=== PATIENT | male | born 1935 | race Caucasian/White ===

== ENCOUNTER → 2016-06-04 | Day surgery (SDC) | payer OTHER ==
[2016-05-26 15:49] VITALS: Ht 162.6 cm; Wt 77.3 kg
[~2016-06-04] VITALS: Ht 162.6 cm; Wt 77.3 kg
[~2016-06-04] MED LIST: 500ML BSS 0.3ML EPI 1:1000PF IRRIG ONE; ACETAMINOPHEN 325 MG TAB PO PRN; ALBUAER2 INH; AMVISC PLUS 0.8ML SYRINGE INT OCU ONE; ASCO-63 PO; ASPCH81X PO; ASTN; ATROPINE SULFATE 0.1 MG/ML 5ML SYR IV PRN; AcetaZOLAMIDE 250 MG TAB PO SCH; BETAXOLOL HCL 0.25% OP SUSP PER DROP CHARGE OPR SCH; BRIMONIDINE TART 0.2% OP SOLN PER DROP CHARGE ONE; BSS FLUSH ONE; CHOL1000 PO; CITA10TA4 PO; ENDOCOAT 0.85ML SYRINGE INT OCU ONE; EpHEDrine SULFATE INJ 50 MG/ML AMP IV PRN; EpINEphrine INJ 1MG/ML AMP 1 MG/ML AMP ONE; FENTANYL CITRATE INJ 50 MCG/1 ML 2 ML VIAL IV PRN; FLUMAZENIL 0.1 MG/1 ML 10 ML VIAL IV PRN; FRS/40 PO; HYDROmorphone INJ 2 MG/ML SYR/VIAL IV PRN; LABETALOL HCL IV 5 MG/ML 20ML IV PRN; LACTATED RINGER'S 1000ML 500 ML IV SCH; LEVO50TA6 PO; LIDOCAINE 4% OP SOLN DROP CHARGE ONE; LIDOCAINE 4% OP SOLN DROP CHARGE OPR SCH; LIDOCAINE HCL 1% MPF 2 ML VIAL ONE; MEPERIDINE HCL 25 MG/ML CARP IV PRN; METO25TA3 PO; MIDAZOLAM HCL 1 MG/ML 2ML VIAL ONE; MIX: 4ML BSS 1ML EPI 1:1000 PF INSTIL ONE; MOXIFLOXACIN OPH SOLN PER DROP CHARGE ONE; NALOXONE HCL 0.4 MG/1 ML VIAL/CARP IV PRN; OCUCOAT 1 ML SOLN IO ONE; ONDANSETRON INJ 2 MG/ML 2 ML VIAL IV PRN; PANT40TA PO; PHENYLEPHRINE 100MCG/ML 5ML SYR IV PRN; POTASSIUM PO; POVIDONE-IODINE OP SOLN 30 ML BTL ONE; PRAV20TA PO; PRED1SUS3 OPR; PROPARACAINE 0.5% OP SOLN PER DROP CHARGE OPR SCH; TAMS0.4C38 PO; TOBRAMYCIN/DEXAMETHASONE OPH OINT PER APPLN CHARGE ONE; WARF1TAB PO; [UNRECOGNIZED DRUG - CODE] PO
--- NOTE | 2016-06-04 07:55 | History & Physical Bridge - SC ---
H&P Re-Evaluation Bridge Note: I have examined the patient, reviewed the History & Physical and in the interval since the performance of the History & Physical I have noted the following changes of clinical significance: No changes noted
[2016-06-04] MEDS: PHENYLEPHRINE HCL 2.5% OP SOLN PER DROP CHARGE OPR SCH ×2 (08:42→08:47)
[2016-06-04] MEDS: TROPICAMIDE 1% OP SOLN PER DROP CHARGE OPR SCH ×2 (08:43→08:48)
[2016-06-04] MEDS: CYCLOPENTOLATE HCL 1% OP SOLN PER DROP CHARGE OPR SCH ×2 (08:44→08:49)
[2016-06-04] MEDS: MOXIFLOXACIN OPH SOLN PER DROP CHARGE OPR SCH ×2 (08:45→08:53)
--- NOTE | 2016-06-04 09:17 | Discharge Instructions-SurgCtr ---
Discharge Instructions Date of Service Jun 04, 2016. Visit Reason for Visit: Cataract Right Eye Discharge Discharge Diagnosis / Problem: lens implant right eye Discharge Goals Goal(s): Improve function Activity Recommendations Activity Limitations: resume your previous activity Lifting Limitations: no more than 10 pounds Exercise/Sports Limitations: gradually increase as tolerated May Resume Sexual Activity: when tolerated Shower/Bathe: tomorrow Driving or Machine Use: resume 1 day after discharge Anesthesia . Post Anesthesia Instructions: If you have had General Anesthesia or IV Sedation: * Do not drive today. * Resume driving when surgeon permits. * Do not make important decisions or sign legal documents today. * Call surgeon for: 1. Temperature elevations greater than 101 degrees F. 2. Uncontrollable pain. 3. Excessive bleeding. 4. Persistent nausea and vomiting. 5. Medication intolerance (nausea, vomiting or rash). * For nausea and vomiting use only clear liquids such as: tea, soda, bouillon until nausea subsides, then gradually increase diet as tolerated. * If you have any concerns or questions, call your surgeon's office. If physician is unavailable and it is an emergency, call 911 or go to the nearest emergency room. . Instructions / Follow-Up Instructions / Follow-Up ACTIVITY RECOMMENDATIONS: * Light activities. * Mild irritation and blurred vision are common for the first few days. * You may walk outside, read, watch television. * Redness around the white part of the eye is common. MEDICATIONS: Resume previous medications unless instructed otherwise by your surgeon. * Take white Diamox (Acetazolamide) tablet at 1 pm today. Start all eye drops at 1 pm today: * Eye drops (today and tomorrow): Prednisone - one drop in operative eye every 3 hours while awake Ofloxacin - one drop in operative eye every 3 hours while awake SPECIAL CARE INSTRUCTIONS: * Tape plastic shield over eye to sleep at night. Call your doctor at with any concerns or problems. FOLLOW UP VISIT: Follow-up with Dr Krishna at [place] office as scheduled. Diet Recommendations Home Diet: no limitations Procedures Procedures Performed: cataract extraction with lens implant Pending Studies Studies pending at discharge: no Medical Emergencies . Who to Call and When: Medical Emergencies: If at any time you feel your situation is an emergency, please call 911 immediately. . Non-Emergent Contact Non-Emergency issues call your: Manufacturing Plant Manager Call Non-Emergent contact if: your pain is not controlled [phone] . . "Provider Documentation" section prepared by Misael Krishna.
--- NOTE | 2016-06-04 09:18 | [facility] Operative Report ---
Operative Report Date of Service Jun 04, 2016. Operative Report 1. PREOPERATIVE DIAGNOSIS: Senile nuclear cataract, right eye. 2. POSTOPERATIVE DIAGNOSIS: Senile nuclear cataract, right eye. 3. PROCEDURE: Phacoemulsification of right cataract with posterior chamber lens implant, type Bausch [employer] Lomb, model MX60 ANESTHESIA: Local standby. SURGEON: Dr. Krishna. COMPLICATIONS: None. OPERATING TIME: 10 minutes. 4. OPERATION AND FINDINGS: DESCRIPTION OF PROCEDURE: The right pupil was dilated. The anesthetic was administered using a topical technique. The right eye was prepped and draped. A speculum was placed. A clear corneal incision was formed. The chamber was filled with Amvisc Plus and Endocoat. Epinephrine solution was used. A paracentesis was placed. A capsulorrhexis was performed. The nucleus was hydrodissected. The lens was removed with phacoemulsification. Time was 3.04 seconds. The aspiration unit was used to remove the cortex. The capsule was filled with Amvisc Plus. The lens implant was folded and placed into the capsule. The incision was hydrated. The Amvisc was aspirated. The wound was secure. The chamber was deep. The pupil was round. Brimonidine, TobraDex ointment and Vigamox solution were placed. The speculum was removed. The patient was returned to the Recovery Room in stable condition. I attest to the content of the Intraoperative Record and any orders documented therein. Any exceptions are noted below. The scribe's documentation has been prepared in my presence, under my direction and personally reviewed by me in its entirety. I confirm that the note above accurately reflects all work, treatment, procedures, and medical decision making performed by me. I personally scribed for Misael Krishna M.D. (PUJA) on 06/04/16 at 09:18. Electronically submitted by Tashia Contreras ([email or web address]).
[2016-06-04 09:19] VITALS: TEMP 36.8
--- NOTE | 2016-06-04 09:52 | Anesthesia Progress Nt - [facility] ---
Anesthesia Post Op Note Date & Time Jun 04, 2016 at 09:51 Vital Signs Pain Intensity: 0 Vital Signs Past 12 Hours Date Time Temp Pulse Resp B/P Pulse Ox O2 Delivery O2 Flow Rate FiO2 06/04/16 09:19 36.8 71 16 117/74 98 Room Air 06/04/16 08:34 36.8 71 20 124/66 97 Room Air Notes Mental Status: alert / awake / arousable, participated in evaluation Pt Amnestic to Procedure: Yes Nausea / Vomiting: adequately controlled Pain: adequately controlled Airway Patency, RR, SpO2: stable & adequate BP & HR: stable & adequate Hydration State: stable & adequate Anesthetic Complications: no major complications apparent
[2016-06-04 09:55] VITALS: BP 116/64; PULSE 71; O2SAT 96
== END | disposition home or self-care (01) ==
LOC: X.SURG 08:09
PROVIDERS: ATTEND Specialist
DX: H25.11 Age-related nuclear cataract, right eye (principal); J44.9 Chronic obstructive pulmonary disease, unspecified; M19.90 Unspecified osteoarthritis, unspecified site; Z86.73 Personal history of transient ischemic attack (TIA), and cerebral infarction without residual deficits; Z90.49 Acquired absence of other specified parts of digestive tract; Z68.29 Body mass index [BMI] 29.0-29.9, adult; Z95.0 Presence of cardiac pacemaker; Z98.890 Other specified postprocedural states; Z87.891 Personal history of nicotine dependence

== ENCOUNTER → 2016-06-25 | Day surgery (SDC) | payer OTHER ==
[2016-06-17 08:04] VITALS: Ht 162.6 cm; Wt 77.3 kg
[~2016-06-25] VITALS: Ht 162.6 cm; Wt 77.3 kg
[~2016-06-25] MED LIST changes: -ACETAMINOPHEN 325 MG TAB PO PRN; -AcetaZOLAMIDE 250 MG TAB PO SCH; +BETAXOLOL HCL 0.25% OP SUSP PER DROP CHARGE OPL SCH; -BETAXOLOL HCL 0.25% OP SUSP PER DROP CHARGE OPR SCH; -FENTANYL CITRATE INJ 50 MCG/1 ML 2 ML VIAL IV PRN; -FLUMAZENIL 0.1 MG/1 ML 10 ML VIAL IV PRN; -HYDROmorphone INJ 2 MG/ML SYR/VIAL IV PRN; -LABETALOL HCL IV 5 MG/ML 20ML IV PRN; +LIDOCAINE 4% OP SOLN DROP CHARGE OPL SCH; -LIDOCAINE 4% OP SOLN DROP CHARGE OPR SCH; -MEPERIDINE HCL 25 MG/ML CARP IV PRN; -NALOXONE HCL 0.4 MG/1 ML VIAL/CARP IV PRN; -ONDANSETRON INJ 2 MG/ML 2 ML VIAL IV PRN; -PHENYLEPHRINE 100MCG/ML 5ML SYR IV PRN; +PHENYLEPHRINE HCL 10% OP SOLN 5 ML BTL OPL ONE; +PROPARACAINE 0.5% OP SOLN PER DROP CHARGE OPL SCH; -PROPARACAINE 0.5% OP SOLN PER DROP CHARGE OPR SCH
[2016-06-25] MEDS: AcetaZOLAMIDE 250 MG TAB PO SCH ×2 (06:00→10:49)
[2016-06-25] MEDS: PHENYLEPHRINE HCL 2.5% OP SOLN PER DROP CHARGE OPL SCH ×2 (10:42→10:46)
[2016-06-25] MEDS: TROPICAMIDE 1% OP SOLN PER DROP CHARGE OPL SCH ×2 (10:43→10:47)
[2016-06-25] MEDS: CYCLOPENTOLATE HCL 1% OP SOLN PER DROP CHARGE OPL SCH ×2 (10:44→10:48)
[2016-06-25] MEDS: MOXIFLOXACIN OPH SOLN PER DROP CHARGE OPL SCH ×2 (10:45→10:55)
--- NOTE | 2016-06-25 11:36 | Discharge Instructions-SurgCtr ---
Discharge Instructions Date of Service June 25, 2016. Visit Reason for Visit: Cataract Left Eye Discharge Discharge Diagnosis / Problem: lens implant left eye Discharge Goals Goal(s): Improve function Activity Recommendations Activity Limitations: resume your previous activity Lifting Limitations: no more than 10 pounds Exercise/Sports Limitations: gradually increase as tolerated May Resume Sexual Activity: after one week Shower/Bathe: tomorrow Driving or Machine Use: resume 1 day after discharge Anesthesia . Post Anesthesia Instructions: If you have had General Anesthesia or IV Sedation: * Do not drive today. * Resume driving when surgeon permits. * Do not make important decisions or sign legal documents today. * Call surgeon for: 1. Temperature elevations greater than 101 degrees F. 2. Uncontrollable pain. 3. Excessive bleeding. 4. Persistent nausea and vomiting. 5. Medication intolerance (nausea, vomiting or rash). * For nausea and vomiting use only clear liquids such as: tea, soda, bouillon until nausea subsides, then gradually increase diet as tolerated. * If you have any concerns or questions, call your surgeon's office. If physician is unavailable and it is an emergency, call 911 or go to the nearest emergency room. . Instructions / Follow-Up Instructions / Follow-Up ACTIVITY RECOMMENDATIONS: * Light activities. * Mild irritation and blurred vision are common for the first few days. * You may walk outside, read, watch television. * Redness around the white part of the eye is common. MEDICATIONS: Resume previous medications unless instructed otherwise by your surgeon. * Take white Diamox (Acetazolamide) tablet at 2 pm today. Start all eye drops at 2 pm today: * Eye drops (today and tomorrow): Prednisone - one drop in operative eye every 3 hours while awake Ofloxacin - one drop in operative eye every 3 hours while awake SPECIAL CARE INSTRUCTIONS: * Tape plastic shield over eye to sleep at night. Call your doctor at with any concerns or problems. FOLLOW UP VISIT: Follow-up with Dr Krishna at [facility] as scheduled. Diet Recommendations Home Diet: no limitations Procedures Procedures Performed: cataract extraction with lens implant Pending Studies Studies pending at discharge: no Medical Emergencies . Who to Call and When: Medical Emergencies: If at any time you feel your situation is an emergency, please call 911 immediately. . Non-Emergent Contact Non-Emergency issues call your: Senior Peoplesoft Developer Call Non-Emergent contact if: your pain is not controlled [phone] . . "Provider Documentation" section prepared by Misael Krishna. .
--- NOTE | 2016-06-25 11:38 | [facility] Operative Report ---
Operative Report Date of Service June 25, 2016. Operative Report 1. PREOPERATIVE DIAGNOSIS: Senile nuclear cataract, left eye. 2. POSTOPERATIVE DIAGNOSIS: Senile nuclear cataract, left eye. 3. PROCEDURE: Phacoemulsification of left cataract with posterior chamber lens implant, type Bausch & Lomb, model MX60, power +19.0 diopters. ANESTHESIA: Local standby. SURGEON: Dr. Krishna. COMPLICATIONS: None. OPERATING TIME: 10 minutes. 4. OPERATION AND FINDINGS: DESCRIPTION OF PROCEDURE: The left pupil was dilated. The anesthetic was administered using a topical technique. The left eye was prepped and draped. A speculum was placed. A clear corneal incision was formed. The chamber was filled with Amvisc Plus and Endocoat. Epinephrine solution was used. A paracentesis was placed. A capsulorrhexis was performed. The nucleus was hydrodissected. The lens was removed with phacoemulsification. Time was 4.53 seconds. The iris was floppy and the pupil was small throughout the surgery. The aspiration unit was used to remove the cortex. The capsule was filled with Amvisc Plus. The lens implant was folded and placed into the capsule. The incision was hydrated. The Amvisc was aspirated. The wound was secure. The chamber was deep. The pupil was round. Brimonidine, TobraDex ointment and Vigamox solution were placed. The speculum was removed. The patient was returned to the Recovery Room in stable condition. I attest to the content of the Intraoperative Record and any orders documented therein. Any exceptions are noted below. The scribe's documentation has been prepared in my presence, under my direction and personally reviewed by me in its entirety. I confirm that the note above accurately reflects all work, treatment, procedures, and medical decision making performed by me. I personally scribed for Misael Krishna M.D. (PUJA) on 06/25/16 at 11:38. Electronically submitted by Tashia ELLER).
[2016-06-25 11:39] VITALS: TEMP 36.8
--- NOTE | 2016-06-25 11:48 | Anesthesia Progress Nt - [facility] ---
Anesthesia Post Op Note Date & Time June 25, 2016 at 11:48 Vital Signs Pain Intensity: 0 Vital Signs Past 12 Hours Date Time Temp Pulse Resp B/P Pulse Ox O2 Delivery O2 Flow Rate FiO2 06/25/16 11:39 36.8 70 16 125/68 96 Room Air 06/25/16 10:39 37.2 70 18 130/83 95 Room Air Notes Mental Status: alert / awake / arousable, participated in evaluation Pt Amnestic to Procedure: Yes Nausea / Vomiting: adequately controlled Pain: adequately controlled Airway Patency, RR, SpO2: stable & adequate BP & HR: stable & adequate Hydration State: stable & adequate Anesthetic Complications: no major complications apparent
[2016-06-25 12:05] VITALS: BP 132/58; PULSE 69; O2SAT 97
== END | disposition home or self-care (01) ==
LOC: X.SURG 10:22
PROVIDERS: ATTEND Specialist
DX: H25.12 Age-related nuclear cataract, left eye (principal); I10 Essential (primary) hypertension; I25.10 Atherosclerotic heart disease of native coronary artery without angina pectoris; G47.33 Obstructive sleep apnea (adult) (pediatric); Z79.01 Long term (current) use of anticoagulants; Z98.890 Other specified postprocedural states; Z79.899 Other long term (current) drug therapy; Z86.73 Personal history of transient ischemic attack (TIA), and cerebral infarction without residual deficits; J44.9 Chronic obstructive pulmonary disease, unspecified

== ENCOUNTER 2023-07-24 15:35 | Inpatient (IN) ==
[2023-07-24] MEDS: PANTOprazole 80 MG in DEXTROSE 5% 100 ML IV ONE ×2 (16:34→19:13)
[2023-07-24 16:37] LABS: Basophils # (auto) 0.03 K/uL (0.00-0.20); Basophils % (auto) 0.3 %; Eosinophils # (auto) 0.34 K/uL (0.00-0.50); Eosinophils % (auto) 3.4 %; Hematocrit (blood only) 38.3 % (42.0-52.0); Hemoglobin 12.7 g/dl (14.0-18.0); Immature Granulocytes # (auto) 0.04 K/uL (0.01-0.20); Immature Granulocytes % (auto) 0.4 %; Lymphocytes # (auto) 1.56 K/uL (1.20-3.40); Lymphocytes % (auto) 15.6 %; Mean Corpuscular Hemoglobin 31.4 pg (25.0-34.0); Mean Corpuscular Hgb Conc 33.2 g/dL (32.0-36.0); Mean Corpuscular Volume 94.8 fL (80.0-100.0); Mean Platelet Volume 10.9 fL (9.4-12.4); Monocytes # (auto) 1.09 K/uL (0.11-0.59); Monocytes % (auto) 10.9 %; Neutrophils # (auto) 6.92 K/uL (1.40-6.50); Neutrophils % (auto) 69.4 %; Platelet Count 215 K/uL (130-400); RDW Coefficient of Variation 12.7 % (11.5-14.5); RDW Standard Deviation 44.2 fL (36.4-46.3); Red Blood Count 4.04 M/uL (4.70-6.10); White Blood Count 9.98 K/ul (4.8-10.8)
--- NOTE | 2023-07-24 16:42 | Electrocardiogram Report ---
Test Reason : Blood Pressure : / mmHG Vent. Rate : 070 BPM Atrial Rate : 070 BPM P-R Int : 168 ms QRS Dur : 166 ms QT Int : 466 ms P-R-T Axes : -23 -88 082 degrees QTc Int : 503 ms AV dual-paced rhythm Abnormal ECG No previous ECGs available Confirmed by Nash Garcia ([id number]) on 07/24/2023 4:41:51 PM Referred By: Confirmed By:Nash Garcia
[2023-07-24 16:50] LABS: Albumin Globulin Ratio 1.3 (0.9-2); Albumin Level 3.7 gm/dl (3.4-5.0); BUN Creatinine Ratio 19.8 (10-20); Bilirubin,Total 0.3 mg/dl (0.2-1.0); Calcium 8.7 mg/dl (8.6-10.3); Creatinine Clr Calc Pharmacy 43.2 ml/min; Est GFR (African American) 67.9 ml/min; Est GFR (Non-African American) 58.6 ml/min; Globulin 2.9 gm/dl (2.5-4.0); Potassium 4.1 mmol/L (3.5-5.1); Total Protein 6.6 gm/dl (6.0-8.3)
[2023-07-24 16:56] LABS: Troponin I High Sensitivity 6.5 pg/ml (0-20)
--- NOTE | 2023-07-24 16:58 | XRay Report ---
XR chest 1V portable CLINICAL HISTORY: GIB TECHNIQUE: Single frontal radiograph of the chest was obtained. Comparison: None available at the time of this dictation. FINDINGS: Median sternotomy wires are unchanged. Cardiomegaly is noted. Dual-lead pacemaker is seen. The lungs are clear. No evidence of pleural effusion or pneumothorax. IMPRESSION: No acute chest disease. ACT 112: Negative or not required by law. Electronically signed by: Lamberto Horn M.D. 07/24/2023 4:56 PM
[2023-07-24] MEDS: PANTOprazole 40 MG in DEXTROSE 5% MINI-B 100 ML IV SCH ×2 (17:06→21:15)
[2023-07-24] MEDS: PANTOPRAZOLE BOLUS/DRIP IV STA (17:07)
[2023-07-24 17:15] LABS: INR 2.2 (0.9-1.1); Partial Thromboplastin Ratio 1.2; Partial Thromboplastin Time 31 Seconds (21-31); Prothrombin Time 22.2 Seconds (9.0-12.0)
[2023-07-24] MEDS: PHYTONADIONE 10 MG in DEXTROSE 5% 50 ML IV ONE (18:30)
[2023-07-24] MEDS ORDERED: PANTOPRAZOLE BOLUS/DRIP IV STA (18:39)
--- NOTE | 2023-07-24 18:46 | History & Physical Report ---
Date of Service July 24, 2023 Assessment & Plan (1) Rectal bleeding: Plan: This is an 87-year-old male residing at [facility] with PMH of chronic diastolic heart failure, CAD status post CABG x 2, history of pacemaker placement, paroxysmal atrial fibrillation on Coumadin, history of aortic valve replacement, history of thoracic aortic aneurysm repair, CKD 3, frontotemporal dementia, depression and other medical problems listed below who presents with r ectal bleeding. VSS, hgb 12.7 Blood with clots on rectal exam per ED provider No abdominal pain Given 10mg IV vitamin K, holding coumadin Continue protonix drip at least overnight GI consulted H&H Q6H, repeat due at 2215 Obtained blood consent over the phone from POA, daughter Carleen. Will place on chart. Holding 1u prbcs for hgb <8 given cardiac hx NPO except meds, gentle fluids (2) Fronto-temporal dementia: Plan: A&Ox1, at mentation baseline per daughter. Continue donepezil (3) CAD (coronary artery disease): (4) S/P CABG x 2: Plan: H/o CABGx2. Continue statin (5) (HFpEF) heart failure with preserved ejection fraction: Plan: H/o Echocardiogram 12/08/2019 with LV ejection fraction is 55-59% (normal). The left ventricular diastolic function is mildly abnormal (grade I). Bioprosthetic aortic valve #25 mm [place] Epic valve. Prior Ascending Aortic root replacement with Composite bioprosthetic graft Ascending aorta mildly enlarged 4.1 cm CXR with no acute chest disease Plan to hold lasix in AM as patient remains NPO (6) Paroxysmal atrial fibrillation: Plan: Holding coumadin in setting of bleed as above Rate controlled. Not on rate or rhythm home medications (7) Complete heart block: (8) S/P placement of cardiac pacemaker: (9) BPH (benign prostatic hyperplasia): Plan: Continue home tamsulosin, finasteride DVT Ppx: SCDs for now Code status: DNR/DNI per discussion with daughterCarleen ([phone]) PCP: Zuleika (now at [facility]) Dispo: admitted to PCU Patient seen in collaboration with Dr. Hadley. Please see addendum. I spent a total of 75 minutes coordinating, documenting, and providing care for this patient excluding time spent in the performance of separately billed services. History of Present Illness Chief Complaint: Rectal bleeding Primary Care Provider: Jeniffer Edgar MD This is an 87-year-old male residing at [facility] with PMH of chronic diastolic heart failure, CAD status post CABG x 2, history of pacemaker placement, paroxysmal atrial fibrillation on Coumadin, history of aortic valve replacement, history of thoracic aortic aneurysm repair, CKD 3, frontotemporal dementia, depression and other medical problems listed below who presents with rectal bleeding. Patient has dementia and is hard of hearing, so history is limited. During rectal exam by ED provider presence of bleeding with clots. On coumadin for history of A fib. Given 10mg IV vitamin K in ED. Patient comfortable and denies abdominal pain. Remainder of ROS unobtainable 2/2 dementia. Per chart review, history of normal colonoscopy in 2006. H/o hemorrhoidectomy in the past, date unknown. Allergies Allergy/AdvReac Type Severity Reaction Status Date / Time quetiapine Allergy Unknown UNKNOWN-ON Verified 07/24/23 17:07 [facility] MED LIST alendronate sodium AdvReac Intermediate GI Verified 07/24/23 17:07 UPSET/NAUSEA carisoprodol AdvReac Intermediate Dizziness Verified 07/24/23 17:07 simvastatin AdvReac Intermediate MYALGIAS Verified 07/24/23 17:07 Home Medications Medication Instructions Recorded Confirmed Type amoxicillin 875 mg-potassium 1 tab PO BID 07/24/23 07/24/23 History clavulanate 125 mg tablet ascorbic acid (vitamin C) 500 mg 500 mg PO QAM 07/24/23 07/24/23 History tablet cholecalciferol (vitamin D3) 50 50 mcg PO QAM 07/24/23 07/24/23 History mcg (2,000 unit) capsule (Vitamin D3) donepezil 10 mg tablet 10 mg PO QAM 07/24/23 07/24/23 History escitalopram oxalate 10 mg tablet 10 mg PO QAM 07/24/23 07/24/23 History finasteride 5 mg tablet 5 mg PO QAM 07/24/23 07/24/23 History furosemide 20 mg tablet 20 mg PO QAM 07/24/23 07/24/23 History levothyroxine 50 mcg tablet 75 mcg PO QAM 07/24/23 07/24/23 History loratadine 10 mg tablet (Claritin) 10 mg PO QAM 07/24/23 07/24/23 History potassium chloride 10 mEq 10 meq PO QAM 07/24/23 07/24/23 History tablet,extended release(part/cryst) pravastatin 40 mg tablet 40 mg PO HS 07/24/23 07/24/23 History tamsulosin 0.4 mg capsule 0.4 mg PO QAM 07/24/23 07/24/23 History warfarin 2 mg tablet 2 mg PO 3XWK 07/24/23 07/24/23 History warfarin 2.5 mg tablet 2.5 mg PO 4XWK 07/24/23 07/24/23 History Past Med/Surg History Problem List Chronic anticoagulation (Acute) Acute lower gastrointestinal bleeding (Acute) BPH (benign prostatic hyperplasia) Paroxysmal atrial fibrillation CAD (coronary artery disease) (HFpEF) heart failure with preserved ejection fraction S/P placement of cardiac pacemaker Complete heart block Fronto-temporal dementia Rectal bleeding Surgical History H/O aortic valve replacement S/P CABG x 2 Family History Other Neurological disorder Social History Smoking Status: Current some day smoker Tobacco Type: Pipe Preferred Language: Maldivian Media Producer Required: No Current Living Situation: [facility] Feels Safe at Home: Yes Review of Systems Review of Systems: Unobtainable due to cognitive status Physical Exam Physical Exam: General Appearance: WD/WN, vitals as above, NAD, sitting up in bed, pleasantly confused Head: normocephalic, atraumatic Eyes: normal inspection, PERRL, conjunctivae normal, anicteric sclerae ENT: external ear and nose normal, oropharynx normal Neck: normal visual inspection, trachea midline, no thyromegaly Respiratory: normal respiratory effort, lungs clear to auscultation, no wheeze, rales, rhonchi. No accessory muscle use Cardiovascular: regular rate, rhythm, no murmur, normal peripheral pulses, no BLE edema Chest: normal inspection of chest Abdomen/GI: normal bowel sounds, soft, nontender, no hepatosplenomegaly Extremities/Musculoskeletal: no cyanosis or clubbing, extremities motor strength 5/5 Neurologic: PERRL, EOMI, accommodation nl, no face palsy, no dysarthria, CN's II-XI intact bilaterally and moves all extremities Psychiatric: A+Ox1, euthymic affect Skin: no rashes, normal color, warm/dry Results & Data Results & Data Vital Signs (Past 12 Hours) Vital Signs Temp Pulse Resp BP Pulse Ox O2 Del Method 07/24/23 17:06 70 15 148/69 H 96 07/24/23 16:24 70 07/24/23 16:03 70 18 96 Room Air 07/24/23 15:35 36.9 C 70 18 126/62 96 Room Air Laboratory Results Short CBC 07/24/23 Range/Units 16:13 WBC 9.98 (4.8-10.8) K/ul Hgb 12.7 L (14.0-18.0) g/dl Hct 38.3 L (42.0-52.0) % Plt Count 215 (130-400) K/uL BMP 07/24/23 16:13 Sodium 139 Potassium 4.1 Chloride 103 Carbon Dioxide 29 BUN 22 Creatinine 1.11 Glucose 89 Calcium 8.7 Liver Function 07/24/23 Range/Units 16:13 Total Bilirubin 0.3 (0.2-1.0) mg/dl AST 19 (13-39) U/L ALT 23 (7-52) U/L Alkaline Phosphatase 67 (34-104) U/L Albumin 3.7 (3.4-5.0) gm/dl Diagnostic Findings Chest X-Ray 07/24/23 15:51 XR chest 1V portable CLINICAL HISTORY: GIB TECHNIQUE: Single frontal radiograph of the chest was obtained. Comparison: None available at the time of this dictation. FINDINGS: Median sternotomy wires are unchanged. Cardiomegaly is noted. Dual-lead pacemaker is seen. The lungs are clear. No evidence of pleural effusion or pneumothorax. IMPRESSION: No acute chest disease. ACT 112: Negative or not required by law. Electronically signed by: Lamberto Horn M.D. 07/24/2023 4:56 PM Supervising Physician Co-Signing Physician Notes delayed entry date of service noted above Attending Addendum: care coordinated in detail with JACQUES Loza please refer to her notes for full details, I agree with her notes patient seen and examined, records reviewed by myself as well Diagnoses and plan of care formulated with JACQUES Loza, please refer to her notes above Brian Hadley MD
[2023-07-24] MEDS ORDERED: SODIUM CHLORIDE 0.9% 250 ML IV PRN (22:35)
--- NOTE | 2023-07-24 23:19 | Emergency Department Note ---
Impression & Plan Acute lower gastrointestinal bleeding, Chronic anticoagulation ED Provider Note CHIEF COMPLAINT: Rectal bleeding HISTORY OF PRESENT ILLNESS: This 87-year-old male patient presents emergency department from [facility] where the nursing staff has noticed an increase in bright red blood by rectum. Patient is currently anticoagulated on warfarin due to a history of atrial fibrillation. Patient denies any pain, he states he is not sure if he has been bleeding. He is not a reliable historian. REVIEW OF SYSTEMS: Unable to obtain a full review of systems secondary to the patient's dementia. ALLERGIES: see below MEDICATIONS: see below PMH: see below SOCIAL HISTORY: see below DDx: Diverticulitis, hemorrhoid bleed, colonic mass, supratherapeutic INR, rectal fissure, variceal bleed among others. PHYSICAL EXAM: Vital signs reviewed. General: Well-appearing 87-year-old male, in no significant distress. HEENT: No scleral icterus, PERRLA, neck supple. Atraumatic. Hard of hearing Cardiovascular: Regular rate and rhythm, no extra sounds. Systolic ejection murmur Pulmonary: Clear to auscultation bilaterally, normal work of breathing. Abdomen: Soft, nontender, nondistended, positive bowel sounds. Musculoskeletal: Atraumatic, no peripheral edema. Neurologic: Patient awake alert and follows commands, pleasantly confused, speech is clear Rectal: Normal external rectal mucosa, gross dark venous blood with clot noted at the rectum. No melena appreciated. No obvious hemorrhoid or lesion. Skin: Warm, dry, no rash EMERGENCY DEPARTMENT COURSE/MDM: This patient was evaluated and appeared to be in no significant distress. Patient does suffer from dementia and most of the history is obtained from nursing/EMS report. Patient is noted to have venous bleeding from the rectum. IV access was obtained and laboratory work was drawn. Patient was placed on the agriculture specialist blood pressure remained stable. Hemoglobin is 12.6, INR is 2.2. He was given 10 mg of IV vitamin K. Patient was initially placed on Protonix bolus and drip however this was discontinued as the bleeding is likely lower GI based on exam. Case was discussed with the [facility], Vianca Gruber, to evaluate the patient for admission and further management. MONITORING: An order for cardiac monitoring was placed and the patient is noted to be in a paced rhythm at 70 beats per minute. RADIOLOGY: Chest x-ray to my interpretation reveals no evidence of focal lung consolidation or failure. Pacemaker noted, mild cardiomegaly EKG: To my interpretation reveals an AV sequential pacemaker at [address] segments. QTc is 503 DISPOSITION: Admission Past Med/Surg History Problem List (Updated 07/25/23 @ 06:24 by Miriam Mcallister MD) Chronic anticoagulation (Acute) Acute lower gastrointestinal bleeding (Acute) BPH (benign prostatic hyperplasia) Paroxysmal atrial fibrillation CAD (coronary artery disease) (HFpEF) heart failure with preserved ejection fraction S/P placement of cardiac pacemaker Complete heart block Fronto-temporal dementia Rectal bleeding Surgical History H/O aortic valve replacement S/P CABG x 2 Family History Other Neurological disorder Social History Smoking Status: Current some day smoker Tobacco Type: Pipe Preferred Language: [place] [employer] Required: No Current Living Situation: Custodial Feels Safe at Home: Yes Allergies Allergies Allergy/AdvReac Type Severity Reaction Status Date / Time quetiapine Allergy Unknown UNKNOWN-ON Verified 07/24/23 17:07 [facility] MED LIST alendronate sodium AdvReac Intermediate GI Verified 07/24/23 17:07 UPSET/NAUSEA carisoprodol AdvReac Intermediate Dizziness Verified 07/24/23 17:07 simvastatin AdvReac Intermediate MYALGIAS Verified 07/24/23 17:07 Home Meds Home Medications Medication Instructions Recorded Confirmed amoxicillin 875 mg-potassium 1 tab PO BID 07/24/23 07/24/23 clavulanate 125 mg tablet ascorbic acid (vitamin C) 500 mg 500 mg PO QAM 07/24/23 07/24/23 tablet cholecalciferol (vitamin D3) 50 50 mcg PO QAM 07/24/23 07/24/23 mcg (2,000 unit) capsule (Vitamin D3) donepezil 10 mg tablet 10 mg PO QAM 07/24/23 07/24/23 escitalopram oxalate 10 mg tablet 10 mg PO QAM 07/24/23 07/24/23 finasteride 5 mg tablet 5 mg PO QAM 07/24/23 07/24/23 furosemide 20 mg tablet 20 mg PO QAM 07/24/23 07/24/23 levothyroxine 50 mcg tablet 75 mcg PO QAM 07/24/23 07/24/23 loratadine 10 mg tablet (Claritin) 10 mg PO QAM 07/24/23 07/24/23 potassium chloride 10 mEq 10 meq PO QAM 07/24/23 07/24/23 tablet,extended release(part/cryst) pravastatin 40 mg tablet 40 mg PO HS 07/24/23 07/24/23 tamsulosin 0.4 mg capsule 0.4 mg PO QAM 07/24/23 07/24/23 warfarin 2 mg tablet 2 mg PO 3XWK 07/24/23 07/24/23 warfarin 2.5 mg tablet 2.5 mg PO 4XWK 07/24/23 07/24/23 Results & Data (ED) Vital Signs Vital Signs - 24 hr 07/24/23 15:35 07/24/23 16:03 07/24/23 16:24 Temperature 36.9 C Temperature Source Oral Pulse Rate 70 70 70 Pulse Rate from SpO2 Sensor Pulse Rhythm Regular Respiratory Rate 18 18 Respiratory Effort / Characteristics Non-Labored Respiratory Depth Normal Respiratory Pattern Regular Blood Pressure 126/62 Blood Pressure Mean 83 Pulse Oximetry 96 96 Oxygen Delivery Method Room Air Room Air Sepsis Recent Fever Within 48 Hours No Sepsis New/Unexplained Change in Mental Status N/A Sepsis Action Taken by Nursing No Action Required 07/24/23 17:06 07/24/23 18:30 07/24/23 19:30 Temperature Temperature Source Pulse Rate 70 70 85 Pulse Rate from SpO2 Sensor 70 74 Pulse Rhythm Respiratory Rate 15 26 H 20 Respiratory Effort / Characteristics Respiratory Depth Respiratory Pattern Blood Pressure 148/69 H 104/73 Blood Pressure Mean 95 83 Pulse Oximetry 96 99 Oxygen Delivery Method Sepsis Recent Fever Within 48 Hours Sepsis New/Unexplained Change in Mental Status Sepsis Action Taken by Nursing 07/24/23 20:06 07/24/23 20:33 07/24/23 20:33 Temperature 37.1 C Temperature Source Pulse Rate 70 72 72 Pulse Rate from SpO2 Sensor Pulse Rhythm Respiratory Rate 14 18 Respiratory Effort / Characteristics Respiratory Depth Respiratory Pattern Blood Pressure 130/71 Blood Pressure Mean 90 Pulse Oximetry 95 Oxygen Delivery Method Sepsis Recent Fever Within 48 Hours Sepsis New/Unexplained Change in Mental Status Sepsis Action Taken by Custodial Medications Current Medication List: was personally reviewed by me Laboratory Data Attestation: I reviewed the patient's lab results. 07/24/23 22:53 07/24/23 16:13 Lab Results 07/24/23 07/24/23 07/24/23 Range/Units 16:07 16:13 16:16 WBC 9.98 (4.8-10.8) K/ul RBC 4.04 L (4.70-6.10) M/uL Hgb 12.7 L (14.0-18.0) g/dl Hct 38.3 L (42.0-52.0) % MCV 94.8 (80.0-100.0) fL MCH 31.4 (25.0-34.0) pg MCHC 33.2 (32.0-36.0) g/dL RDW Std Deviation 44.2 (36.4-46.3) fL RDW Coeff of Edwin 12.7 (11.5-14.5) % Plt Count 215 (130-400) K/uL MPV 10.9 (9.4-12.4) fL Immature Gran % (Auto) 0.4 % Neut % (Auto) 69.4 % Lymph % (Auto) 15.6 % [place] % (Auto) 10.9 % Eos % (Auto) 3.4 % Baso % (Auto) 0.3 % Neut # (Auto) 6.92 H (1.40-6.50) K/uL Lymph # (Auto) 1.56 (1.20-3.40) K/uL [place] # (Auto) 1.09 H (0.11-0.59) K/uL Eos # (Auto) 0.34 (0.00-0.50) K/uL Baso # (Auto) 0.03 (0.00-0.20) K/uL Immature Gran # (Auto) 0.04 (0.01-0.20) K/uL PT 22.2 H (9.0-12.0) Seconds INR 2.2 H (0.9-1.1) APTT 31 (21-31) Seconds PTT Ratio 1.2 Sodium 139 (136-145) mmol/L Potassium 4.1 (3.5-5.1) mmol/L Chloride 103 (98-107) mmol/L Carbon Dioxide 29 (21-32) mmol/L Anion Gap 7 (3-11) BUN 22 (6-23) mg/dl Creatinine 1.11 (0.6-1.4) mg/dl Est Cr Clr Drug Dosing 43.2 ml/min Est GFR ( Amer) 67.9 ml/min Est GFR (Non-Af Amer) 58.6 ml/min BUN/Creatinine Ratio 19.8 (10-20) Glucose 89 (70-99(Fasting)) mg/dl Calcium 8.7 (8.6-10.3) mg/dl Total Bilirubin 0.3 (0.2-1.0) mg/dl AST 19 (13-39) U/L ALT 23 (7-52) U/L Alkaline Phosphatase 67 (34-104) U/L Troponin I High Sens 6.5 (0-20) pg/ml Total Protein 6.6 (6.0-8.3) gm/dl Albumin 3.7 (3.4-5.0) gm/dl Globulin 2.9 (2.5-4.0) gm/dl Albumin/Globulin Ratio 1.3 (0.9-2) POC Stool Occult Blood Positive A (Negative) Blood Type B Positive Antibody Screen NEGATIVE Administered Medications Pantoprazole Sodium 40 mg/ (Dextrose) 100 mls @ 20 mls/hr IV Q5H [facility] Stop: 08/23/23 18:59 Last Admin: 07/25/23 02:16 Dose: 8 mg/hr, 20 mls/hr Documented By: Infusion: 07/25/23 02:15 Dose: Infused Documented By: Admin: 07/24/23 21:15 Dose: 8 mg/hr, 20 mls/hr Documented By: ZURI Sodium Chloride (Nss) 1,000 mls @ 80 mls/hr IV .[id number] GONZÁLEZ Stop: 07/25/23 11:59 Last Admin: 07/24/23 23:40 Dose: 80 mls/hr Documented By: ZURI Discontinued Medications Pantoprazole Sodium 40 mg/ (Dextrose) 100 mls @ 20 mls/hr IV Q5H [facility] Stop: 08/23/23 16:14 Last Infusion: 07/24/23 23:32 Dose: Infused Documented By: Infusion: 07/24/23 18:15 Dose: 0 mg/hr, 0 mls/hr Documented By: Admin: 07/24/23 17:06 Dose: 8 mg/hr, 20 mls/hr Documented By: BRADLEY Pantoprazole Sodium 80 mg/ (Dextrose) 120 mls @ 480 mls/hr IV NOW ONE Stop: 07/24/23 16:05 Last Infusion: 07/24/23 17:07 Dose: Infused Documented By: Admin: 07/24/23 16:34 Dose: 480 mls/hr Documented By: BRADLEY Phytonadione 10 mg/ Dextrose 51 mls @ 102 mls/hr IV ONE ONE Stop: 07/24/23 18:20 Last Infusion: 07/24/23 19:28 Dose: Infused Documented By: Admin: 07/24/23 18:30 Dose: 102 mls/hr Documented By: BRADLEY Pantoprazole Sodium 80 mg/ (Dextrose) 120 mls @ 480 mls/hr IV NOW ONE Stop: 07/24/23 18:53 Last Admin: 07/24/23 19:13 Dose: Not Given Documented By: BRADLEY Pantoprazole Sodium (Pantoprazole Bolus/Drip) 1 each IV NOW STA Stop: 07/24/23 15:52 Last Admin: 07/24/23 17:07 Dose: Not Given Documented By: BRADLEY Imaging Data Radiologist's Impression: Chest X-Ray 07/24/23 15:51 XR chest 1V portable CLINICAL HISTORY: GIB TECHNIQUE: Single frontal radiograph of the chest was obtained. Comparison: None available at the time of this dictation. FINDINGS: Median sternotomy wires are unchanged. Cardiomegaly is noted. Dual-lead pacemaker is seen. The lungs are clear. No evidence of pleural effusion or pneumothorax. IMPRESSION: No acute chest disease. ACT 112: Negative or not required by law. Electronically signed by: Lamberto Horn M.D. 07/24/2023 4:56 PM Discharge Plan Visit Data Chief Complaint: GI Bleed Stated Complaint: GI BLEED ED Provider: Miriam Mcallister Discharge Problem: Acute lower gastrointestinal bleeding, Chronic anticoagulation Patient Disposition: Admitted As Inpatient Discharge Instructions Interventions: ED Discharge Assessment Last Done: 07/24/23 22:35
[2023-07-24 23:27] LABS: Hematocrit (blood only) 33.4 % (42.0-52.0); Hemoglobin 11.2 g/dl (14.0-18.0)
[2023-07-24] MEDS: SODIUM CHLORIDE 0.9% 1,000 ML IV SCH (23:40)
[2023-07-25] MEDS: LEVOTHYROXINE SODIUM 75 MCG TABLET PO SCH (06:48)
[2023-07-25 07:13] LABS: Hematocrit (blood only) 33.4 % (42.0-52.0); Hemoglobin 11.2 g/dl (14.0-18.0); Mean Corpuscular Hemoglobin 31.4 pg (25.0-34.0); Mean Corpuscular Hgb Conc 33.5 g/dL (32.0-36.0); Mean Corpuscular Volume 93.6 fL (80.0-100.0); Mean Platelet Volume 10.8 fL (9.4-12.4); Platelet Count 169 K/uL (130-400); RDW Coefficient of Variation 12.7 % (11.5-14.5); RDW Standard Deviation 43.8 fL (36.4-46.3); Red Blood Count 3.57 M/uL (4.70-6.10); White Blood Count 7.42 K/ul (4.8-10.8)
[2023-07-25 07:18] LABS: Albumin Globulin Ratio 1.3 (0.9-2); BUN Creatinine Ratio 14.2 (10-20); Bilirubin,Total 0.4 mg/dl (0.2-1.0); Calcium 7.9 mg/dl (8.6-10.3); Creatinine Clr Calc Pharmacy 45.3 ml/min; Est GFR (African American) 71.8 ml/min; Est GFR (Non-African American) 61.9 ml/min; Globulin 2.4 gm/dl (2.5-4.0); Total Protein 5.4 gm/dl (6.0-8.3)
[2023-07-25 07:35] LABS: INR 1.4 (0.9-1.1); Prothrombin Time 14.3 Seconds (9.0-12.0)
[2023-07-25] MEDS: TAMSULOSIN HCL 0.4 MG CAP PO SCH (09:14)
[2023-07-25] MEDS: FINASTERIDE 5 MG TAB PO SCH (09:14)
[2023-07-25] MEDS: ESCITALOPRAM OXALATE 10 MG TAB PO SCH (09:14)
[2023-07-25] MEDS: POTASSIUM CHLORIDE 10 MEQ TABCR PO SCH (09:14)
--- NOTE | 2023-07-25 09:51 | Gastrointestinal Consultation ---
Date of Consultation July 25, 2023 Assessment & Plan (1) Acute lower gastrointestinal bleeding: Pleasantly demented gentleman with hematochezia that sounds like hemorrhoidal bleeding. The fact that he isn't having frequent bloody stools points against this being diverticular hemorrhage. Over the first two checks of his hemoglobin it has remained very stable. With this information I don't think colonoscopy is warranted. Will observe while in hospital but if things stay the way they are I don't see the need for long hospitalization History of Present Illness Reason for Consultation: rectal bleeding Attending Physician: Phuong Wood MD History of Present Illness 87 year old man admitted with hematochezia found at the [facility]. Pleasantly demented states he feels good and is "pleased with himself". Thinks it is 1987 but he doesn't know the president. No further history obtainable. Nurse reports no bleeding on her shift. There was blood on the toilet seat. Allergies Allergy/AdvReac Type Severity Reaction Status Date / Time quetiapine Allergy Unknown UNKNOWN-ON Verified 07/24/23 17:07 [facility] MED LIST alendronate sodium AdvReac Intermediate GI Verified 07/24/23 17:07 UPSET/NAUSEA carisoprodol AdvReac Intermediate Dizziness Verified 07/24/23 17:07 simvastatin AdvReac Intermediate MYALGIAS Verified 07/24/23 17:07 Home Medications Medication Instructions Recorded Confirmed Type amoxicillin 875 mg-potassium 1 tab PO BID 07/24/23 07/24/23 History clavulanate 125 mg tablet ascorbic acid (vitamin C) 500 mg 500 mg PO QAM 07/24/23 07/24/23 History tablet cholecalciferol (vitamin D3) 50 50 mcg PO QAM 07/24/23 07/24/23 History mcg (2,000 unit) capsule (Vitamin D3) donepezil 10 mg tablet 10 mg PO QAM 07/24/23 07/24/23 History escitalopram oxalate 10 mg tablet 10 mg PO QAM 07/24/23 07/24/23 History finasteride 5 mg tablet 5 mg PO QAM 07/24/23 07/24/23 History furosemide 20 mg tablet 20 mg PO QAM 07/24/23 07/24/23 History levothyroxine 50 mcg tablet 75 mcg PO QAM 07/24/23 07/24/23 History loratadine 10 mg tablet (Claritin) 10 mg PO QAM 07/24/23 07/24/23 History potassium chloride 10 mEq 10 meq PO QAM 07/24/23 07/24/23 History tablet,extended release(part/cryst) pravastatin 40 mg tablet 40 mg PO HS 07/24/23 07/24/23 History tamsulosin 0.4 mg capsule 0.4 mg PO QAM 07/24/23 07/24/23 History warfarin 2 mg tablet 2 mg PO 3XWK 07/24/23 07/24/23 History warfarin 2.5 mg tablet 2.5 mg PO 4XWK 07/24/23 07/24/23 History Patient History Surgical History H/O aortic valve replacement S/P CABG x 2 Family History Other Neurological disorder Social History Smoking Status: Current some day smoker Tobacco Type: Pipe Preferred Language: Romansh Split Leather Mosser Required: No Current Living Situation: Senior Living Feels Safe at Home: Yes Review of Systems Review of Systems: All systems reviewed & are unremarkable except as noted in HPI & below Physical Exam Constitutional: WD/WN, vitals as above Neck: trachea midline, no thyromegaly Respiratory: normal respiratory effort, lungs clear to auscultation Cardiovascular: RRR, no murmur, no edema Gastrointestinal (Abdomen): normal bowel sounds, soft, nontender, no hepatosplenomegaly Results & Data Vital Signs (Past 12 Hours) Vital Signs Temp Pulse Pulse Resp BP BP Pulse Ox 07/25/23 09:04 70 18 135/79 98 07/25/23 09:01 70 18 135/79 97 07/25/23 08:49 70 07/25/23 05:03 07/25/23 04:38 70 18 133/61 98 07/25/23 03:03 72 15 07/25/23 02:30 74 14 130/65 07/25/23 02:10 72 17 121/61 95 07/25/23 02:00 70 19 07/25/23 01:33 70 17 07/25/23 01:00 70 17 07/25/23 00:48 71 15 121/61 07/25/23 00:00 70 15 07/24/23 23:30 37.1 C 70 17 121/61 95 07/24/23 23:09 70 16 07/24/23 22:51 70 15 Pulse Ox O2 Del Method O2 Del Method 07/25/23 09:04 Room Air 07/25/23 09:01 Room Air 07/25/23 08:49 07/25/23 05:03 98 Room Air 07/25/23 04:38 Room Air 07/25/23 03:03 07/25/23 02:30 07/25/23 02:10 Room Air 07/25/23 02:00 07/25/23 01:33 07/25/23 01:00 07/25/23 00:48 07/25/23 00:00 07/24/23 23:30 07/24/23 23:09 07/24/23 22:51 Laboratory Results 07/25/23 07/24/23 07/24/23 Range/Units 06:37 22:53 16:16 WBC 7.42 (4.8-10.8) K/ul RBC 3.57 L (4.70-6.10) M/uL Hgb 11.2 L 11.2 L (14.0-18.0) g/dl Hct 33.4 L 33.4 L (42.0-52.0) % MCV 93.6 (80.0-100.0) fL MCH 31.4 (25.0-34.0) pg MCHC 33.5 (32.0-36.0) g/dL RDW Std Deviation 43.8 (36.4-46.3) fL RDW Coeff of Edwin 12.7 (11.5-14.5) % Plt Count 169 (130-400) K/uL MPV 10.8 (9.4-12.4) fL Immature Gran % (Auto) % Neut % (Auto) % Lymph % (Auto) % [place] % (Auto) % Eos % (Auto) % Baso % (Auto) % Neut # (Auto) (1.40-6.50) K/uL Lymph # (Auto) (1.20-3.40) K/uL [place] # (Auto) (0.11-0.59) K/uL Eos # (Auto) (0.00-0.50) K/uL Baso # (Auto) (0.00-0.20) K/uL Immature Gran # (Auto) (0.01-0.20) K/uL PT 14.3 H (9.0-12.0) Seconds INR 1.4 H (0.9-1.1) APTT (21-31) Seconds PTT Ratio Sodium 138 (136-145) mmol/L Potassium 4.0 (3.5-5.1) mmol/L Chloride 106 (98-107) mmol/L Carbon Dioxide 29 (21-32) mmol/L Anion Gap 3 (3-11) BUN 15 (6-23) mg/dl Creatinine 1.06 (0.6-1.4) mg/dl Est Cr Clr Drug Dosing 45.3 ml/min Est GFR ( Amer) 71.8 ml/min Est GFR (Non-Af Amer) 61.9 ml/min BUN/Creatinine Ratio 14.2 (10-20) Glucose 91 (70-99(Fasting)) mg/dl Calcium 7.9 L (8.6-10.3) mg/dl Total Bilirubin 0.4 (0.2-1.0) mg/dl AST 13 (13-39) U/L ALT 16 (7-52) U/L Alkaline Phosphatase 54 (34-104) U/L Troponin I High Sens (0-20) pg/ml Total Protein 5.4 L (6.0-8.3) gm/dl Albumin 3.0 L (3.4-5.0) gm/dl Globulin 2.4 L (2.5-4.0) gm/dl Albumin/Globulin Ratio 1.3 (0.9-2) POC Stool Occult Blood (Negative) Blood Type B Positive Blood Type Recheck B Positive Antibody Screen NEGATIVE 07/24/23 07/24/23 Range/Units 16:13 16:07 WBC 9.98 (4.8-10.8) K/ul RBC 4.04 L (4.70-6.10) M/uL Hgb 12.7 L (14.0-18.0) g/dl Hct 38.3 L (42.0-52.0) % MCV 94.8 (80.0-100.0) fL MCH 31.4 (25.0-34.0) pg MCHC 33.2 (32.0-36.0) g/dL RDW Std Deviation 44.2 (36.4-46.3) fL RDW Coeff of Edwin 12.7 (11.5-14.5) % Plt Count 215 (130-400) K/uL MPV 10.9 (9.4-12.4) fL Immature Gran % (Auto) 0.4 % Neut % (Auto) 69.4 % Lymph % (Auto) 15.6 % [place] % (Auto) 10.9 % Eos % (Auto) 3.4 % Baso % (Auto) 0.3 % Neut # (Auto) 6.92 H (1.40-6.50) K/uL Lymph # (Auto) 1.56 (1.20-3.40) K/uL [place] # (Auto) 1.09 H (0.11-0.59) K/uL Eos # (Auto) 0.34 (0.00-0.50) K/uL Baso # (Auto) 0.03 (0.00-0.20) K/uL Immature Gran # (Auto) 0.04 (0.01-0.20) K/uL PT 22.2 H (9.0-12.0) Seconds INR 2.2 H (0.9-1.1) APTT 31 (21-31) Seconds PTT Ratio 1.2 Sodium 139 (136-145) mmol/L Potassium 4.1 (3.5-5.1) mmol/L Chloride 103 (98-107) mmol/L Carbon Dioxide 29 (21-32) mmol/L Anion Gap 7 (3-11) BUN 22 (6-23) mg/dl Creatinine 1.11 (0.6-1.4) mg/dl Est Cr Clr Drug Dosing 43.2 ml/min Est GFR ( Amer) 67.9 ml/min Est GFR (Non-Af Amer) 58.6 ml/min BUN/Creatinine Ratio 19.8 (10-20) Glucose 89 (70-99(Fasting)) mg/dl Calcium 8.7 (8.6-10.3) mg/dl Total Bilirubin 0.3 (0.2-1.0) mg/dl AST 19 (13-39) U/L ALT 23 (7-52) U/L Alkaline Phosphatase 67 (34-104) U/L Troponin I High Sens 6.5 (0-20) pg/ml Total Protein 6.6 (6.0-8.3) gm/dl Albumin 3.7 (3.4-5.0) gm/dl Globulin 2.9 (2.5-4.0) gm/dl Albumin/Globulin Ratio 1.3 (0.9-2) POC Stool Occult Blood Positive A (Negative) Blood Type Blood Type Recheck Antibody Screen Diagnostic Findings Chest X-Ray 07/24/23 15:51 XR chest 1V portable CLINICAL HISTORY: GIB TECHNIQUE: Single frontal radiograph of the chest was obtained. Comparison: None available at the time of this dictation. FINDINGS: Median sternotomy wires are unchanged. Cardiomegaly is noted. Dual-lead pacemaker is seen. The lungs are clear. No evidence of pleural effusion or pneumothorax. IMPRESSION: No acute chest disease. ACT 112: Negative or not required by law. Electronically signed by: Lamberto Horn M.D. 07/24/2023 4:56 PM
[2023-07-25 10:33] LABS: Hemoglobin 11.5 g/dl (14.0-18.0)
--- NOTE | 2023-07-25 17:25 | Hospitalist Progress Note ---
Date of Service July 25, 2023 Assessment & Plan (1) Rectal bleeding: Plan: This is an 87-year-old male residing at [facility] with PMH of chronic diastolic heart failure, CAD status post CABG x 2, history of pacemaker placement, paroxysmal atrial fibrillation on Coumadin, history of aortic valve replacement, history of thoracic aortic aneurysm repair, CKD 3, frontotemporal dementia, depression and other medical problems listed below who presents with r ectal bleeding. VSS, hgb 12.7 Blood with clots on rectal exam per ED provider No abdominal pain ED provider gave 10mg IV vitamin K, holding coumadin Continue protonix drip at least overnight GI consulted -no need for urgent colonoscopy as it appears bleeding stopped H&H stable at 11 Admitting provider obtained blood consent over the phone from HARJINDER, daughter Carleen. Will place on chart. (2) Fronto-temporal dementia: Plan: A&Ox1, at mentation baseline per daughter. Continue donepezil (3) CAD (coronary artery disease): (4) S/P CABG x 2: Plan: H/o CABGx2. Continue statin (5) (HFpEF) heart failure with preserved ejection fraction: Plan: H/o Echocardiogram 12/08/2019 with LV ejection fraction is 55-59% (normal). The left ventricular diastolic function is mildly abnormal (grade I). Bioprosthetic aortic valve #25 mm [place] Epic valve. Prior Ascending Aortic root replacement with Composite bioprosthetic graft Ascending aorta mildly enlarged 4.1 cm CXR with no acute chest disease Continue home lasix (6) Paroxysmal atrial fibrillation: Plan: Holding coumadin in setting of bleed as above Rate controlled. Not on rate or rhythm home medications Resume as able (7) Complete heart block: (8) S/P placement of cardiac pacemaker: (9) BPH (benign prostatic hyperplasia): Plan: Continue home tamsulosin, finasteride DVT Ppx: SCDs for now Code status: DNR/DNI per discussion with daughterCarleen ([phone]) PCP: Zuleika (now at [facility]) Dispo: PT/OT Admission and Anticipated Discharge Date Admission Date: July 24, 2023 Subjective Seen while still down in the ED pt was initially asleep. Hard of hearing, demented, denied acute concerns Review of Systems Review of Systems: All systems reviewed & are unremarkable except as noted in Subjective Physical Exam Physical Exam: General: Alert. No acute distress Psych: Appropriate mood and affect HEENT: NC/AT CV: RRR Resp: Breath sounds clear bilaterally, no increased effort of breathing. Abdomen: Soft, nontender, nondistended. Extremities: edema in lower extremities bilaterally. Results & Data Results & Data Vital Signs (Past 12 Hours) Vital Signs Pulse Pulse Resp BP BP Pulse Ox Pulse Ox 07/25/23 12:49 72 18 142/83 H 93 07/25/23 09:04 70 18 135/79 98 07/25/23 09:01 70 18 135/79 97 07/25/23 08:49 70 07/25/23 05:03 98 07/25/23 04:38 70 18 133/61 98 07/25/23 03:03 72 15 07/25/23 02:30 74 14 130/65 07/25/23 02:10 72 17 121/61 95 07/25/23 02:00 70 19 O2 Del Method O2 Del Method 07/25/23 12:49 Room Air 07/25/23 09:04 Room Air 07/25/23 09:01 Room Air 07/25/23 08:49 07/25/23 05:03 Room Air 07/25/23 04:38 Room Air 07/25/23 03:03 07/25/23 02:30 07/25/23 02:10 Room Air 07/25/23 02:00
[2023-07-25] MEDS: PRAVASTATIN SOD 40 MG TAB PO SCH (20:31)
[2023-07-26 06:55] LABS: Hematocrit (blood only) 36.2 % (42.0-52.0); Mean Corpuscular Hemoglobin 31.1 pg (25.0-34.0); Mean Corpuscular Hgb Conc 33.1 g/dL (32.0-36.0); Mean Corpuscular Volume 93.8 fL (80.0-100.0); Mean Platelet Volume 10.9 fL (9.4-12.4); Platelet Count 185 K/uL (130-400); RDW Coefficient of Variation 12.6 % (11.5-14.5); RDW Standard Deviation 43.5 fL (36.4-46.3); Red Blood Count 3.86 M/uL (4.70-6.10); White Blood Count 7.82 K/ul (4.8-10.8)
[2023-07-26 07:05] LABS: INR 1.1 (0.9-1.1); Prothrombin Time 11.8 Seconds (9.0-12.0)
[2023-07-26 08:00] LABS: Albumin Level 3.3 gm/dl (3.4-5.0); Bilirubin,Total 0.6 mg/dl (0.2-1.0); Calcium 8.3 mg/dl (8.6-10.3); Potassium 3.8 mmol/L (3.5-5.1)
[2023-07-26 08:06] LABS: Albumin Globulin Ratio 1.3 (0.9-2); BUN Creatinine Ratio 11.3 (10-20); Creatinine Clr Calc Pharmacy 44.9 ml/min; Est GFR (African American) 71.8 ml/min; Est GFR (Non-African American) 61.9 ml/min; Globulin 2.6 gm/dl (2.5-4.0); Total Protein 5.9 gm/dl (6.0-8.3)
[2023-07-26] MEDS: LORATADINE 10 MG TAB PO SCH (08:21)
[2023-07-26] MEDS: FUROSEMIDE 20 MG TAB PO SCH (08:21)
[2023-07-26] MEDS: ASCORBIC ACID 500 MG TAB PO SCH (08:22)
[2023-07-26] MEDS: CHOLECALCIFEROL 25 MCG (1000 UNITS) TAB PO SCH (08:22)
[2023-07-26] MEDS: DONEPEZIL HCL 10 MG TAB PO SCH (08:23)
--- NOTE | 2023-07-26 09:39 | Gastroenterology Progress Note ---
Date of Service July 26, 2023 Assessment & Plan (1) Acute lower gastrointestinal bleeding: Plan: No further bleeding. H/H rising. Not sure why he is on PPI drip but that could be stopped. I will advance his diet. Will sign off. Please call if services needed again Admission and Anticipated Discharge Date Admission Date: July 24, 2023 Subjective A little more confused right after I woke him up but he got better. Says he feels pretty good. Also says he isn't leaving. Hgb 12. Nurses report no bowel movements and no blood Physical Exam Constitutional: WD/WN, vitals as above Results & Data Vital Signs (Past 12 Hours) Vital Signs Temp Pulse Resp BP Pulse Ox Pulse Ox O2 Del Method 07/26/23 08:49 36.5 C 69 18 149/80 H 97 Room Air 07/26/23 05:00 98 07/26/23 03:29 36.5 C 71 18 167/63 H 98 Room Air 07/25/23 22:36 37.2 C 70 16 132/73 95 Room Air O2 Del Method 07/26/23 08:49 07/26/23 05:00 Room Air 07/26/23 03:29 07/25/23 22:36
--- NOTE | 2023-07-26 14:01 | Hospitalist Progress Note ---
Date of Service July 26, 2023 Assessment & Plan (1) Rectal bleeding: Plan: This is an 87-year-old male residing at [facility] with PMH of chronic diastolic heart failure, CAD status post CABG x 2, history of pacemaker placement, paroxysmal atrial fibrillation on Coumadin, history of aortic valve replacement, history of thoracic aortic aneurysm repair, CKD 3, frontotemporal dementia, depression and other medical problems listed below who presents with r ectal bleeding. VSS, hgb 12.7 on admission Blood with clots on rectal exam per ED provider No abdominal pain ED provider gave 10mg IV vitamin K, holding coumadin Protonix drip d/c GI consulted -no need for urgent colonoscopy as it appears bleeding stopped -advanced diet H&H stable at 12 Stable for discharge back to [facility] once transportation arranged (2) Fronto-temporal dementia: Plan: A&Ox1, at mentation baseline per daughter. Continue donepezil (3) CAD (coronary artery disease): (4) S/P CABG x 2: Plan: H/o CABGx2. Continue statin (5) (HFpEF) heart failure with preserved ejection fraction: Plan: H/o Echocardiogram 12/08/2019 with LV ejection fraction is 55-59% (normal). The left ventricular diastolic function is mildly abnormal (grade I). Bioprosthetic aortic valve #25 mm [place] Epic valve. Prior Ascending Aortic root replacement with Composite bioprosthetic graft Ascending aorta mildly enlarged 4.1 cm CXR with no acute chest disease Continue home lasix (6) Paroxysmal atrial fibrillation: Plan: Holding coumadin in setting of bleed as above Rate controlled. Not on rate or rhythm home medications Cardiology consult in the AM for anticoagulation d/c recs (7) Complete heart block: (8) S/P placement of cardiac pacemaker: (9) BPH (benign prostatic hyperplasia): Plan: Continue home tamsulosin, finasteride DVT Ppx: SCDs for now in setting of GI bleed Code status: DNR/DNI per discussion with daughterCarleen ([phone]) PCP: Zuleika (now at [facility]) Dispo: PT/OT Admission and Anticipated Discharge Date Admission Date: July 24, 2023 Subjective Pleasantly confused. Was resting comfortably in bed. Review of Systems Review of Systems: All systems reviewed & are unremarkable except as noted in Subjective Physical Exam Physical Exam: General: No acute distress Psych: Appropriate mood and affect HEENT: NC/AT CV: RRR Resp: Breath sounds clear bilaterally, no increased effort of breathing. Abdomen: Soft, nontender, nondistended. Extremities: edema in lower extremities bilaterally. Results & Data Results & Data Vital Signs (Past 12 Hours) Vital Signs Temp Pulse Resp BP Pulse Ox Pulse Ox O2 Del Method 07/26/23 12:31 36.6 C 71 17 106/70 96 Room Air 07/26/23 08:49 36.5 C 69 18 149/80 H 97 Room Air 07/26/23 05:00 98 07/26/23 03:29 36.5 C 71 18 167/63 H 98 Room Air O2 Del Method 07/26/23 12:31 07/26/23 08:49 07/26/23 05:00 Room Air 07/26/23 03:29
[2023-07-27 07:03] LABS: Hematocrit (blood only) 35.7 % (42.0-52.0); Hemoglobin 11.9 g/dl (14.0-18.0); Mean Corpuscular Hgb Conc 33.3 g/dL (32.0-36.0); Platelet Count 173 K/uL (130-400); RDW Coefficient of Variation 12.4 % (11.5-14.5); RDW Standard Deviation 42.4 fL (36.4-46.3); Red Blood Count 3.84 M/uL (4.70-6.10); White Blood Count 8.53 K/ul (4.8-10.8)
[2023-07-27 07:27] LABS: Calcium 8.2 mg/dl (8.6-10.3); Potassium 3.7 mmol/L (3.5-5.1)
[2023-07-27 07:33] LABS: BUN Creatinine Ratio 11.4 (10-20); Creatinine Clr Calc Pharmacy 38.7 ml/min; Est GFR (Non-African American) 51.7 ml/min
--- NOTE | 2023-07-27 13:41 | Discharge Summary ---
Discharge Summary Date of Service July 27, 2023 Principal Dx & Hospital Course #1 = Principal Diagnosis (1) Rectal bleeding: This is an 87-year-old male residing at [facility] with PMH of chronic diastolic heart failure, CAD status post CABG x 2, history of pacemaker placement, paroxysmal atrial fibrillation on Coumadin, history of aortic valve replacement, history of thoracic aortic aneurysm repair, CKD 3, frontotemporal dementia, depression and other medical problems listed below who presents with rectal bleeding. VSS, hgb 12.7 on admission Blood with clots on rectal exam per ED provider No abdominal pain ED provider gave 10mg IV vitamin K, held coumadin Protonix drip initially, then discontinued GI consulted -no need for urgent colonoscopy as it appears bleeding stopped -advanced diet H&H stable at 12 Stable for discharge back to [facility] once transportation arranged (2) Fronto-temporal dementia: A&Ox1, at mentation baseline per daughter. Continue donepezil (3) CAD (coronary artery disease): (4) S/P CABG x 2: H/o CABGx2. Continue statin (5) (HFpEF) heart failure with preserved ejection fraction: H/o Echocardiogram 12/08/2019 with LV ejection fraction is 55-59% (normal). The left ventricular diastolic function is mildly abnormal (grade I). Bioprosthetic aortic valve #25 mm [place] Epic valve. Prior Ascending Aortic root re placement with Composite bioprosthetic graft Ascending aorta mildly enlarged 4.1 cm CXR with no acute chest disease Continue home lasix (6) Paroxysmal atrial fibrillation: Held coumadin in setting of bleed as above Rate controlled. Not on rate or rhythm home medications Discussed with Gastroenterology Dr Bethel Phillips on day of dscharge, can resume home warfarin (7) Complete heart block: (8) S/P placement of cardiac pacemaker: (9) BPH (benign prostatic hyperplasia): Continue home tamsulosin, finasteride Notes For Next Care Provider Per gastroenterology Dr Phillips on the day of discharge, can resume home warfarin. Medication Changes From Visit None- Per gastroenterology Dr Phillips on the day of discharge, can resume home warfarin. Admission HPI Per Admitting Provider This is an 87-year-old male residing at [facility] with PMH of chronic diastolic heart failure, CAD status post CABG x 2, history of pacemaker placement, paroxysmal atrial fibrillation on Coumadin, history of aortic valve replacement, history of thoracic aortic aneurysm repair, CKD 3, frontotemporal dementia, depression and other medical problems listed below who presents with rectal bleeding. Patient has dementia and is hard of hearing, so history is limited. During rectal exam by ED provider presence of bleeding with clots. On coumadin for history of A fib. Given 10mg IV vitamin K in ED. Patient comfortable and denies abdominal pain. Remainder of ROS unobtainable 2/2 dementia. Per chart review, history of normal colonoscopy in 2006. H/o hemorrhoidectomy in the past, date unknown. Admission Exam Per Admitting Provider General Appearance: WD/WN, vitals as above, NAD, sitting up in bed, pleasantly confused Head: normocephalic, atraumatic Eyes: normal inspection, PERRL, conjunctivae normal, anicteric sclerae ENT: external ear and nose normal, oropharynx normal Neck: normal visual inspection, trachea midline, no thyromegaly Respiratory: normal respiratory effort, lungs clear to auscultation, no wheeze, rales, rhonchi. No accessory muscle use Cardiovascular: regular rate, rhythm, no murmur, normal peripheral pulses, no BLE edema Chest: normal inspection of chest Abdomen/GI: normal bowel sounds, soft, nontender, no hepatosplenomegaly Extremities/Musculoskeletal: no cyanosis or clubbing, extremities motor strength 5/5 Neurologic: PERRL, EOMI, accommodation nl, no face palsy, no dysarthria, CN's II-XI intact bilaterally and moves all extremities Psychiatric: A+Ox1, euthymic affect Skin: no rashes, normal color, warm/dry Discharge Exam General: No acute distress Psych: pleasantly confused HEENT: NC/AT CV: RRR Resp: Breath sounds clear bilaterally, no increased effort of breathing. Abdomen: Soft, nontender, nondistended. Extremities: edema in lower extremities bilaterally. Updated Medication List Medication Instructions Recorded Confirmed Type amoxicillin 875 mg-potassium 1 tab PO BID 07/24/23 07/24/23 History clavulanate 125 mg tablet ascorbic acid (vitamin C) 500 mg 500 mg PO QAM 07/24/23 07/24/23 History tablet cholecalciferol (vitamin D3) 50 50 mcg PO QAM 07/24/23 07/24/23 History mcg (2,000 unit) capsule (Vitamin D3) donepezil 10 mg tablet 10 mg PO QAM 07/24/23 07/24/23 History escitalopram oxalate 10 mg tablet 10 mg PO QAM 07/24/23 07/24/23 History finasteride 5 mg tablet 5 mg PO QAM 07/24/23 07/24/23 History furosemide 20 mg tablet 20 mg PO QAM 07/24/23 07/24/23 History levothyroxine 50 mcg tablet 75 mcg PO QAM 07/24/23 07/24/23 History loratadine 10 mg tablet (Claritin) 10 mg PO QAM 07/24/23 07/24/23 History potassium chloride 10 mEq 10 meq PO QAM 07/24/23 07/24/23 History tablet,extended release(part/cryst) pravastatin 40 mg tablet 40 mg PO HS 07/24/23 07/24/23 History tamsulosin 0.4 mg capsule 0.4 mg PO QAM 07/24/23 07/24/23 History warfarin 2 mg tablet 2 mg PO 3XWK 07/24/23 07/24/23 History warfarin 2.5 mg tablet 2.5 mg PO 4XWK 07/24/23 07/24/23 History Hospital Stay Data Consultations 07/24/23 18:27 ED Decision to Admit Stat 07/24/23 18:35 Consult Gastroenterology Routine Diagnostic Imagining Performed Chest X-Ray 07/24/23 15:51 XR chest 1V portable CLINICAL HISTORY: GIB TECHNIQUE: Single frontal radiograph of the chest was obtained. Comparison: None available at the time of this dictation. FINDINGS: Median sternotomy wires are unchanged. Cardiomegaly is noted. Dual-lead pacemaker is seen. The lungs are clear. No evidence of pleural effusion or pneumothorax. IMPRESSION: No acute chest disease. ACT 112: Negative or not required by law. Electronically signed by: Lamberto Horn M.D. 07/24/2023 4:56 PM Discharge Instructions Given to Patient (Per Discharging Provider) Mr. Devlin, You are being discharged. Per gastroenterology Dr Phillips on the day of discharge, you can resume your home warfarin. Please keep close follow up with your primary care provider after discharge. Please do not hesitate to come back to the emergency room if your symptoms worsen or return. It was a pleasure taking care of you while you were here. Total Time Total Time Spent Total Time Spent (In Minutes): 75
[2023-07-27] MEDS ORDERED: WARFARIN SOD 2 MG TAB PO SCH (16:00)
[2023-07-28] MEDS ORDERED: WARFARIN SOD 2.5 MG TAB PO SCH (16:00)
== END 2023-07-27 14:05 | DRG 378 ==
LOC: ED 15:35 → EDINP 20:36 → SUATTDRO 20:36 → 2S 22:35 → 3N 07-26 23:50